=== PATIENT | male | born 1990 | race Hispanic/Latino ===

== ENCOUNTER 2018-05-08 20:11 | Emergency (ER) | payer BC ==
[~2018-05-08] VITALS: Ht 165.1 cm; Wt 76.2 kg
[2018-05-08] MEDS ORDERED: FAMOTIDINE 20 MG/2 ML VIAL IV STA (20:46)
[2018-05-08] MEDS ORDERED: SODIUM CHLORIDE 0.9% 1000ML 1,000 ML IV ONE (21:00)
[2018-05-08] MEDS ORDERED: ONDANSETRON HCL INJ 2 MG/ML VIAL IV STA (21:36)
[2018-05-08] MEDS ORDERED: MORPHINE SULFATE 2 MG/ML SYR IV STA (21:36)
--- NOTE | 2018-05-08 21:36 | Diagnostic Imaging Report ---
CXR 2 VIEW - HOPD, Technique: CXR 2 VIEW - HOPD Comparison: None Clinical history: \[id number] \[id number] DISCUSSION: Normal appearance of the heart, mediastinum, lungs and pleural spaces. IMPRESSION: No acute abnormality Signed by: Dr Farrah Parrish MD on 05/08/2018 9:33 PM
--- NOTE | 2018-05-08 22:50 | Diagnostic Imaging Report ---
EXAM: CT ABD/PEL WITH CONTRAST-HOPD DATE: 05/08/2018 12:00 AM INDICATION: Epigastric pain COMPARISON: None TECHNIQUE: The abdomen and pelvis were scanned using a multidetector helical scanner. Coronal and sagittal reformations were obtained. IV Contrast: 100 ml Isovue 300/370 FINDINGS: LOWER THORAX: No consolidations LIVER/BILIARY: Severe hepatic steatosis with pericholecystic/periportal sparing. No ductal dilatation. GALLBLADDER: Unremarkable SPLEEN: Unremarkable PANCREAS: Unremarkable ADRENALS: No nodules KIDNEYS: No suspicious renal masses. No hydronephrosis. GI TRACT: No wall thickening or evidence of obstruction. Normal appendix. VESSELS: Unremarkable PERITONEUM/RETROPERITONEUM: No free air or fluid LYMPH NODES: No lymphadenopathy REPRODUCTIVE ORGANS/BLADDER: Unremarkable SOFT TISSUES: No acute findings BONES: No suspicious bone lesions. IMPRESSION: No acute abnormality. Hepatic steatosis. Signed by: Dr Farrah Parrish MD on 05/08/2018 10:47 PM
== END 2018-05-08 23:18 | disposition home or self-care (01) ==
LOC: FSED 20:11
DX: R10.12 Left upper quadrant pain (principal); K29.00 Acute gastritis without bleeding
CPT/HCPCS: 36415; 71046; 74177; 80053; 80076; 81003; 83690; 85025; 99284; J2270; J2405; J7030

== ENCOUNTER → 2021-09-22 | Outpatient (CLI) | payer BC, OTHER | LOC: VACCPMC 09:00 | DX: Z23 Encounter for immunization (principal); Z20.822 Contact with and (suspected) exposure to COVID-19 ==